=== PATIENT | male | born 1985 | race Caucasian/White ===

== ENCOUNTER 2020-07-23 17:15 | Emergency (ER) | payer SELFPAY ==
[2020-07-23] MEDS ORDERED: Lidocaine 1% (PF) 30 ML VIAL ONE (19:05)
[2020-07-23] MEDS ORDERED: Acetaminophen 500 MG TAB ONE (19:17)
[2020-07-23] MEDS ORDERED: Ibuprofen 800 MG TAB ONE (19:17)
[2020-07-23] MEDS ORDERED: Boostrix 0.5 ML (Tdap) VIAL ONE (19:22)
== END 2020-07-23 19:32 | disposition home or self-care (01) ==
LOC: ERS 17:15
DX: L02.31 Cutaneous abscess of buttock (principal); L03.317 Cellulitis of buttock
CPT/HCPCS: 10060; 90471; 90715; J2001